=== PATIENT | female | born 1975 | race Caucasian/White ===

== ENCOUNTER → 2016-07-08 | Outpatient (CLI) | payer BC ==
[~2016-07-08] MED LIST: GADOBUTROL 10 ML VIAL IVP ONE
--- NOTE | 2016-07-08 13:03 | MR ---
MRI of the Brain (Without and With Contrast) at 1128 hours Clinical Indication: R20.2, paresthesias of skin, G43.909, migraine, paresthesias and tingling in the right arm and leg, visual changes, headache, R51. Comparison: None. Technique: T1-weighted images were acquired axially and sagittally from the foramen magnum to the ve rtex. Axial fast inversion recovery, fast T2-weighted, and diffusion-weighted axial images were obta ined without contrast. Postcontrast axial and coronal T1, sagittal FLAIR images with the uneventful i ntravenous administration of 6 mL Gadavist contrast. Findings: The ventricles, cisterns, and sulci are normal without atrophy, hydrocephalus, midline ramona ft, herniation, or epidural/subdural hematomas. No intracranial hemorrhage or masses. Diffusion-weigh pradip images demonstrate no acute infarct. Cerebellar tonsils are in normal position. Pituitary gland i s normal in size. Normal signal flow-void in the superior sagittal sinus, basilar artery, and bilater al internal carotid arteries indicating patency. Postcontrast images demonstrate no enhancing lesions or abnormal leptomeningeal enhancement. No evidence of demyelinating plaques/multiple sclerosis. Bra instem and cerebellar hemispheres appear normal. Paranasal sinuses and mastoid air cells are clear. Impression: Normal MRI of the brain without and with contrast.
== END ==
LOC: FIMAGING 11:00
PROVIDERS: ATTEND Psychiatry & Neurology Neurology
DX: R51 Headache (principal); R20.2 Paresthesia of skin; G43.909 Migraine, unspecified, not intractable, without status migrainosus
CPT/HCPCS: A9585

== ENCOUNTER 2016-08-10 22:28 | Emergency (ER) | payer BC ==
--- NOTE | 2016-08-10 22:58 | EDPHY ---
H & P Time Seen by Provider: 08/10/16 22:44 HPI/ROS: CHIEF COMPLAINT: Thumb laceration HISTORY OF PRESENT ILLNESS: The patient is a 40-year-old healthy female who comes to the emergency department complaining of a laceration to her right thumb. She was grating cheese about 5 hours ago and accidentally got part of her thumb. She has had bandage but will not stop oozing blood. She denies other injuries. She has normal range of motion movement. Normal sensation. Her tetanus shot is up-to-date. REVIEW OF SYSTEMS: Constitutional: denies: chills, fever, recent illness, recent injury EENTM: denies: blurred vision, double vision, nose congestion Respiratory: denies: cough, shortness of breath Cardiac: denies: chest pain, irregular heart rate, lightheadedness, palpitations Gastrointestinal/Abdominal: denies: abdominal pain, diarrhea, nausea, vomiting, blood streaked stools Genitourinary: denies: dysuria, frequency, hematuria, pain Musculoskeletal: denies: joint pain, muscle pain Skin: See HPI Neurological: denies: headache, numbness, paresthesia, tingling, dizziness, weakness Hematologic/Lymphatic: denies: blood clots, easy bleeding, easy bruising Immunologic/allergic: denies: HIV/AIDS, transplant EXAM: GENERAL: Well-appearing, well-nourished and in no acute distress. HEAD: Atraumatic, normocephalic. EYES: Pupils equal round and reactive to light, extraocular movements intact, sclera anicteric, conjunctiva are normal. ENT: TMs normal, nares patent, oropharynx clear without exudates. Moist mucous membranes. NECK: Normal range of motion, supple without lymphadenopathy or JVD. LUNGS: Breath sounds clear to auscultation bilaterally and equal. No wheezes rales or rhonchi. HEART: Regular rate and rhythm without murmurs, rubs or gallops. ABDOMEN: Soft, nontender, normoactive bowel sounds. No guarding, no rebound. No masses appreciated. BACK: No CVA tenderness, no spinal tenderness, step-offs or deformities EXTREMITIES: Normal range of motion, no pitting or edema. No clubbing or cyanosis. NEUROLOGICAL: Cranial nerves II through XII grossly intact. Normal speech, normal gait. 5/5 strength, normal movement in all extremities, normal sensation PSYCH: Normal mood, normal affect. SKIN: Small avulsion/laceration to ulnar aspect of right thumb. Mild bleeding. Source: Patient Exam Limitations: No limitations - Medical/Surgical History Hx Asthma: No Hx Chronic Respiratory Disease: No Hx Diabetes: No Hx Cardiac Disease: No Hx Renal Disease: No Hx Cirrhosis: No Hx Alcoholism: No - Family History Significant Family History: No pertinent family hx - Social History Smoking Status: Never smoked Alcohol Use: Sober Drug Use: None Constitutional: Initial Vital Signs Temperature (C) 36.7 C 08/10/16 23:00 Heart Rate 74 08/10/16 23:00 Respiratory Rate 16 08/10/16 23:00 Blood Pressure 124/77 H 08/10/16 23:00 O2 Sat (%) 97 08/10/16 23:00 O2 Delivery Mode Room Air Allergies/Adverse Reactions: No Known Allergies Allergy (Unverified 08/10/16 23:20) Home Medications: Medication Instructions Recorded Ortho Tri-Cyclen 28 Tablet 08/10/16 Medical Decision Making ED Course/Re-evaluation: The patient's thumb was dressed with Surgicel. The bleeding is controlled. She is happy with this. We discussed removal and continued care. She declines further workup or testing at this time. Differential Diagnosis: Partial list of the Differential diagnosis considered include but were not limited to; laceration, avulsion, nerve injury, vascular injury and although unlikely based on the history and physical exam, I also considered fracture, non accidental trauma. I discussed these differential diagnoses and the plan with the patient as well as the usual and expected course. The patient understands that the diagnosis is provisional and that in medicine we are not always correct and that further workup is often warranted. Usual and customary warnings were given. All of the patient's questions were answered. The patient was instructed to return to the emergency department should the symptoms at all worsen or return, otherwise to followup with the physician as we discussed. Departure - Departure Disposition: Home, Routine, Self-Care Clinical Impression: Laceration Condition: Fair Instructions: Laceration (ED) Referrals: Sheila Good MD [Medical Doctor] - As per Instructions
[2016-08-10 23:30] VITALS: BP 124/77; PULSE 74; RESP 16; TEMP 98.1; O2SAT 97
== END 2016-08-10 23:15 | disposition home or self-care (01) ==
DX: S61.011A Laceration without foreign body of right thumb without damage to nail, initial encounter (principal); W45.8XXA Other foreign body or object entering through skin, initial encounter; Y99.8 Other external cause status; Y93.89 Activity, other specified

== ENCOUNTER 2017-09-05 14:21 | Emergency (ER) | payer BC ==
[2017-09-05] MEDS ORDERED: IBUPROFEN 600 MG TAB PO ONE (14:51)
--- NOTE | 2017-09-05 15:02 | EDPHY ---
H & P Stated Complaint: headache status post fall aprox 2 feet last night Time Seen by Provider: 09/05/17 14:50 HPI/ROS: CHIEF COMPLAINT: Headache HISTORY OF PRESENT ILLNESS: The patient is a 41-year-old female who was zip lining in her backyard yesterday evening around 8 o'clock. When she got to the bottom of the zip line she fell backwards flat on her back on the grass. She fell about 2 ft from the ground but was moving at the time. She has had a headache in the back of her head ever since. No neck pain. No weakness numbness or paralysis. She did not feel dizzy. She did not lose consciousness. No seizure-like activity. She denies other injuries. She can ambulate without difficulty. She went to bed and thought she would feel better this morning but does not. She does have some baseline tingling in both fingers but states that is unchanged from baseline. REVIEW OF SYSTEMS: Constitutional: denies: chills, fever, recent illness, recent injury EENTM: denies: blurred vision, double vision, nose congestion Respiratory: denies: cough, shortness of breath Cardiac: denies: chest pain, irregular heart rate, lightheadedness, palpitations Gastrointestinal/Abdominal: denies: abdominal pain, diarrhea, nausea, vomiting, blood streaked stools Genitourinary: denies: dysuria, frequency, hematuria, pain Musculoskeletal: denies: joint pain, muscle pain Skin: denies: lesions, rash, jaundice, bruising Neurological: See HPI denies: numbness, paresthesia, tingling, dizziness, weakness Hematologic/Lymphatic: denies: blood clots, easy bleeding, easy bruising Immunologic/allergic: denies: HIV/AIDS, transplant EXAM: GENERAL: Well-appearing, well-nourished and in no acute distress. HEAD: Atraumatic, normocephalic. EYES: Pupils equal round and reactive to light, extraocular movements intact, sclera anicteric, conjunctiva are normal. ENT: TMs normal, nares patent, oropharynx clear without exudates. Moist mucous membranes. NECK: Normal range of motion, supple without lymphadenopathy or JVD. LUNGS: Breath sounds clear to auscultation bilaterally and equal. No wheezes rales or rhonchi. HEART: Regular rate and rhythm without murmurs, rubs or gallops. ABDOMEN: Soft, nontender, normoactive bowel sounds. No guarding, no rebound. No masses appreciated. BACK: No CVA tenderness, no spinal tenderness, step-offs or deformities EXTREMITIES: Normal range of motion, no pitting or edema. No clubbing or cyanosis. NEUROLOGICAL: Cranial nerves II through XII grossly intact. Normal speech, normal gait. 5/5 strength, normal movement in all extremities, normal sensation , normal reflexes PSYCH: Normal mood, normal affect. SKIN: Warm, dry, normal turgor, no visible rashes or lesions. Source: Patient Exam Limitations: No limitations - Personal History LMP (Females 10-55): 8-14 Days Ago Current Tetanus Diphtheria and Acellular Pertussis (TDAP): Yes Tetanus Vaccine Date: 2011 - Medical/Surgical History Hx Asthma: No Hx Chronic Respiratory Disease: No Hx Diabetes: No Hx Cardiac Disease: No Hx Renal Disease: No Hx Cirrhosis: No Hx Alcoholism: No Hx HIV/AIDS: No Hx Splenectomy or Spleen Trauma: No Other PMH: knee surgery, appendectomy - Social History Smoking Status: Never smoked Alcohol Use: Sober Constitutional: Initial Vital Signs Temperature (C) 36.7 C 09/05/17 14:42 Heart Rate 89 09/05/17 14:42 Respiratory Rate 16 09/05/17 14:42 Blood Pressure 137/72 H 09/05/17 14:42 O2 Sat (%) 98 09/05/17 14:42 O2 Delivery Mode Room Air Allergies/Adverse Reactions: No Known Allergies Allergy (Unverified 08/10/16 23:20) Home Medications: Medication Instructions Recorded Spiriva Inhaler (RX) 09/05/17 Medical Decision Making ED Course/Re-evaluation: The patient likely has a concussion. She does not have any contusions lacerations or signs of fracture. We discussed the possibility of injuries worse than a concussion and I offered to do a CT scan. We discussed the risks and benefits and ultimately agreed not to perform any imaging at this time. She will take ibuprofen go home and rest. I discussed with her the concussion protocol and stepwise return to activity. She is happy with this and will return if her symptoms worsen. She declines further testing at this time. She does have her family at home. She declines prescription medications. Differential Diagnosis: Partial list of the Differential diagnosis considered include but were not limited to; concussion, fracture, intracranial injury and although unlikely based on the history and physical exam, I also considered cervical spine injury , extremity injury. I discussed these differential diagnoses and the plan with the [patient] as well as the usual and expected course. The [patient understands] that the diagnosis is provisional and that in medicine we are not always correct and that further workup is often warranted. Usual and customary warnings were given. All of the [patient's] questions were answered. The [ patient was] instructed to return to the emergency department should the symptoms at all worsen or return, otherwise to followup with the physician as we discussed. - Data Points Medications Given: Discontinued Medications Ibuprofen (Motrin) 600 mg PO EDNOW ONE Stop: 09/05/17 14:52 Last Admin: 09/05/17 14:53 Dose: 600 mg Departure - Departure Disposition: Home, Routine, Self-Care Clinical Impression: Concussion Qualifiers: Encounter type: initial encounter Loss of consciousness presence/duration: without LOC Qualified Code(s): S06.0X0A - Concussion without loss of consciousness, initial encounter Condition: Fair Instructions: Concussion (ED) Referrals: Maryse Johnson MD [Medical Doctor] - 5-7 days, if not improved
[2017-09-05 15:15] VITALS: BP 125/78; PULSE 78; RESP 18; TEMP 98.6; O2SAT 97
== END 2017-09-05 15:16 | disposition home or self-care (01) ==
DX: S06.0X0A Concussion without loss of consciousness, initial encounter (principal); W18.39XA Other fall on same level, initial encounter; Y92.007 Garden or yard of unspecified non-institutional (private) residence as the place of occurrence of the external cause; Y99.8 Other external cause status; Y93.89 Activity, other specified

== ENCOUNTER 2018-08-19 13:25 | Emergency (ER) | payer BC ==
--- NOTE | 2018-08-19 13:58 | EDPHY ---
H & P Time Seen by Provider: 08/19/18 13:38 HPI/ROS: CHIEF COMPLAINT: chest pain/arm pain HISTORY OF PRESENT ILLNESS: The patient is a 42-year-old female who presents emergency department multiple complaints. The patient states that she woke up at 3:00 a.m. this morning with left arm pain. Her pain persisted her left arm from 3-6 a.m. The patient then did her normal meditation at 6:00 a.m. She states that during meditation she had 2 episodes of "momentary" substernal chest discomfort. These were fleeting in nature. She subsequently went to spin class and her arm pain resolved by 9am. Patient states that last evening she moved furniture with her . She did not recall injuring herself but thought the arm pain may be related. Patient also states that for the past week she has had a strange breathing sensation between her mouth and upper chest. She feels as though there is something "lodged" in her breath and throat. She went to a chiropractor that deals in energy. She states that he reported that her energy was off. Patient also reports that she has been doing a new yoga which can change her energy and caused her to have symptoms such as this. Patient has no leg pain or swelling. No recent travel. No fevers or chills. No cough. REVIEW OF SYSTEMS: 10 systems were reveiwed and are negative with the exception of the elements mentioned in the history of present illness. Past Medical/Surgical History: Negative Past surgical history: Noncontributory Social history: Patient does not smoke cigarettes. She smokes THC occasionally. Smoking Status: Former smoker Physical Exam: Vitals noted GENERAL: Well-appearing, in no acute distress, alert. HEENT: Eyes normal to inspection, normal pharynx, no signs of dehydration. NECK: Normal, supple. RESPIRATORY: Clear to auscultation bilaterally, no rales, rhonchi or wheezing. CVS: Regular rate and rhythm, no rubs, murmurs, or gallops. Chest wall: No tenderness palpation. Normal. ABDOMEN: Soft, nontender, nondistended, no organomegaly. BACK: Normal to inspection, no CVA tenderness. SKIN: Normal color, no rash, warm, dry. No pallor. EXTREMITIES: No pedal edema, no calf tenderness, no Homans sign or cords, no joint swelling. NEURO/PSYCH: Alert and oriented, normal mood and affect, normal motor sensory exam. No obvious cranial nerve deficit. Constitutional: Initial Vital Signs Temperature (C) 36.7 C 08/19/18 13:27 Heart Rate 76 08/19/18 13:27 Respiratory Rate 16 08/19/18 13:27 Blood Pressure 123/82 H 08/19/18 13:27 O2 Sat (%) 97 08/19/18 13:27 O2 Delivery Mode Room Air Allergies/Adverse Reactions: epinephrine Allergy (Verified 08/19/18 13:31) Home Medications: Medication Instructions Recorded Spiriva Inhaler (RX) 09/05/17 Medical Decision Making - Diagnostics Imaging Results: Imaging Impressions Chest X-Ray 08/19/18 14:00 Impression: Mild central bronchitis; otherwise negative chest. ED Course/Re-evaluation: In the emergency department I discussed possible etiologies with the patient. I answered all her questions. IV was placed. Laboratory studies, EKG and chest x-ray were ordered. Patient was given Toradol 30 mg IV. The patient given aspirin 324 mg Orally. EKG shows normal sinus rhythm, normal rate, normal axis, normal intervals. There are no ST or T-wave abnormalities. EKG is normal as interpreted by me. The CBC and chemistry panel unremarkable. Troponin is negative. D-dimer is negative Chest x-ray: No acute disease. Please refer the dictated report. I discussed results with the patient. I answered all her questions. I discussed case with Cardiology. The patient has an appointment with Dr. Joe tomorrow Patient was given warnings prior to leaving. She will return with worsening symptoms. Differential Diagnosis: My differential includes but is not limited to ACS, acute TN, dissection, aneurysm, pulmonary embolus, costochondritis, hiatal hernia, GERD, peptic ulcer disease - Data Points Laboratory Results: Laboratory Results 08/19/18 13:37 08/19/18 13:37 08/19/18 08/19/18 08/19/18 13:37 13:37 13:37 WBC RBC Hgb Hct MCV MCH MCHC RDW Plt Count MPV Neut % (Auto) Lymph % (Auto) [place] % (Auto) Eos % (Auto) Baso % (Auto) Nucleat RBC Rel Count Absolute Neuts (auto) Absolute Lymphs (auto) Absolute Monos (auto) Absolute Eos (auto) Absolute Basos (auto) Absolute Nucleated RBC Immature Gran % Immature Gran # D-Dimer < 0.27 ug/mLFEU ug/mLFEU (0.00-0.50) Sodium 139 mEq/L mEq/L (135-145) Potassium 4.0 mEq/L mEq/L (3.5-5.2) Chloride 106 mEq/L mEq/L (97-110) Carbon Dioxide 20 mEq/l L mEq/l (22-31) Anion Gap 13 mEq/L mEq/L (6-14) BUN 13 mg/dL mg/dL (7-23) Creatinine 0.8 mg/dL mg/dL (0.6-1.0) Estimated GFR > 60 Glucose 99 mg/dL mg/dL (70-100) Calcium 9.3 mg/dL mg/dL (8.5-10.4) Total Bilirubin 0.5 mg/dL mg/dL (0.1-1.4) Conjugated Bilirubin 0.3 mg/dL mg/dL (0.0-0.5) Unconjugated Bilirubin 0.2 mg/dL mg/dL (0.0-1.1) AST 31 IU/L IU/L (14-46) ALT 36 IU/L IU/L (9-52) Alkaline Phosphatase 69 IU/L IU/L (38-126) Total Protein 7.6 g/dL g/dL (6.3-8.2) Albumin 4.9 g/dL g/dL (3.5-5.0) Lipase 84 IU/L IU/L (23-300) Beta HCG, Qual NEGATIVE 08/19/18 13:37 WBC 8.69 10^3/uL 10^3/uL (3.80-9.50) RBC 4.64 10^6/uL 10^6/uL (4.18-5.33) Hgb 14.1 g/dL g/dL (12.6-16.3) Hct 42.7 % % (38.0-47.0) MCV 92.0 fL fL (81.5-99.8) MCH 30.4 pg pg (27.9-34.1) MCHC 33.0 g/dL g/dL (32.4-36.7) RDW 12.0 % % (11.5-15.2) Plt Count 206 10^3/uL 10^3/uL (150-400) MPV 11.2 fL fL (8.7-11.7) Neut % (Auto) 70.7 % % (39.3-74.2) Lymph % (Auto) 22.7 % % (15.0-45.0) [place] % (Auto) 5.9 % % (4.5-13.0) Eos % (Auto) 0.3 % L % (0.6-7.6) Baso % (Auto) 0.2 % L % (0.3-1.7) Nucleat RBC Rel Count 0.0 % % (0.0-0.2) Absolute Neuts (auto) 6.14 10^3/uL 10^3/uL (1.70-6.50) Absolute Lymphs (auto) 1.97 10^3/uL 10^3/uL (1.00-3.00) Absolute Monos (auto) 0.51 10^3/uL 10^3/uL (0.30-0.80) Absolute Eos (auto) 0.03 10^3/uL 10^3/uL (0.03-0.40) Absolute Basos (auto) 0.02 10^3/uL 10^3/uL (0.02-0.10) Absolute Nucleated RBC 0.00 10^3/uL 10^3/uL (0-0.01) Immature Gran % 0.2 % % (0.0-1.1) Immature Gran # 0.02 10^3/uL 10^3/uL (0.00-0.10) D-Dimer Sodium Potassium Chloride Carbon Dioxide Anion Gap BUN Creatinine Estimated GFR Glucose Calcium Total Bilirubin Conjugated Bilirubin Unconjugated Bilirubin AST ALT Alkaline Phosphatase Total Protein Albumin Lipase Beta HCG, Qual Medications Given: Discontinued Medications Aspirin (Aspirin) 324 mg PO EDNOW ONE Stop: 08/19/18 14:01 Last Admin: 08/19/18 14:34 Dose: 324 mg Ketorolac Tromethamine (Toradol) 15 mg IVP EDNOW ONE Stop: 08/19/18 14:02 Last Admin: 08/19/18 14:34 Dose: 15 mg Departure - Departure Disposition: Home, Routine, Self-Care Clinical Impression: Chest pain Qualifiers: Chest pain type: unspecified Qualified Code(s): R07.9 - Chest pain, unspecified Condition: Good Instructions: Chest Pain (ED) Additional Instructions: Return with increasing chest pain, shortness of breath or any other concerns. Keep your appointment tomorrow with Cardiology. Referrals: Janeth Coyle ND [Primary Care Provider] - As per Instructions [facility] [Provider Group] - 1 day without fail (Dr Plummer 08/20/2018 at 3:30 pm)
[2018-08-19] MEDS ORDERED: ASPIRIN 81 MG CHEWABLE TAB PO ONE (14:00)
[2018-08-19] MEDS ORDERED: KETOROLAC 15 MG/1 ML SDV IVP ONE (14:01)
[2018-08-19 14:14] LABS: PLATELET COUNT 206 10^3/uL (150-400)
[2018-08-19 15:16] VITALS: BP 116/74
--- NOTE | 2018-08-23 15:31 | CPEKG ---
Test Reason : OPEN Blood Pressure : / mmHG Vent. Rate : 074 BPM Atrial Rate : 073 BPM P-R Int : 168 ms QRS Dur : 076 ms QT Int : 401 ms P-R-T Axes : 065 071 040 degrees QTc Int : 445 ms Sinus rhythm Confirmed by Berto Moss ([id number]) on 08/23/2018 3:31:33 PM Referred By: Ora Rm Confirmed By:Berto Moss
== END 2018-08-19 15:17 | disposition home or self-care (01) ==
DX: R07.9 Chest pain, unspecified (principal)
CPT/HCPCS: 84484-ER; 96374; J1885